=== PATIENT | female | born 1940 | race American Indian/Alaskan Native ===

== ENCOUNTER 2018-01-19 11:39 | Outpatient (CLI) | payer MEDICARE ==
--- NOTE | 2018-01-19 14:12 | XRay Report ---
XRAY RIGHT KNEE 3 THREE VIEWS: 01/19/18 11:39:00 CLINICAL: Right knee pain. FINDINGS: Medial and lateral joint space narrowing with small osteophytes. Slightly greater narrowing of the medial joint space. Mild patellofemoral joint arthritis. Quadriceps tendon insertion and patellar tendon insertion enthesophytes. No fracture or dislocation. No joint effusion.Normal soft tissues. IMPRESSION: Moderate osteoarthritis and quadriceps tendon insertion and patellar tendon insertion enthesophytes.
--- NOTE | 2018-01-19 23:14 | XRay Report ---
FINAL REPORT PROCEDURE: XR SPINE LUMBOSACRAL 4+V TECHNIQUE: Lumbar spine radiographs, including AP, lateral, and oblique views. HISTORY: LUMBAR PAIN WITH RADIATION DOWN RIGHT LEG COMPARISON: No prior studies are available for comparison. FINDINGS: Alignment: Normal. Vertebral body heights/Disk spaces: There is slight loss of disc space height at the L2-3 level. Mild spur formation the vertebral bodies from the L2 through L4 vertebral level is noted. Fracture(s): None. Facets: Normal. Bone mineralization: Normal. IMPRESSION: There is no evidence of an acute fracture or dislocation. Mild lumbar spondylosis as discussed.
== END 2018-01-19 11:40 | disposition home or self-care (01) ==
LOC: SPVIMAG 11:39
PROVIDERS: ATTEND Internal Medicine
DX: M47.896 Other spondylosis, lumbar region (principal); M17.11 Unilateral primary osteoarthritis, right knee
CPT/HCPCS: 72110

== ENCOUNTER 2018-04-01 10:31 | Outpatient (CLI) | payer MEDICARE ==
--- NOTE | 2018-04-01 11:06 | Mammography Report ---
BILATERAL MAMMOGRAM: FINDINGS: The breasts are almost entirely fat (<25% glandular). No mass, distortion, suspicious calcification, or skin change is seen. No significant change when compared to exams dating back to September 2015. CAD was utilized. IMPRESSION: Negative mammogram. There is no mammographic evidence of malignancy. RECOMMENDATION: Follow-up per ACS guidelines. BI-RADS CATEGORY: 1 = Negative ACR BI-RADS MAMMOGRAPHIC CODES: 0 = Needs additional imaging evaluation; 1 = Negative; 2 = Benign; 3 = Probably benign; 4 = Suspicious; 5 = Malignant; 6 = Known biopsy-proven malignancy COMMENT: 1. Dense breast tissue, i.e., adenosis, fibrocystic changes, etc., may obscure an underlying neoplasm. 2. Approximately 10% of cancers are not detected with mammography. 3. A negative mammography report should not delay biopsy if a clinically suspicious mass is present. COMMENT: Patient follow-up letters are generated in [employer].
== END 2018-04-01 10:32 | disposition home or self-care (01) ==
LOC: SPVWC 10:31
PROVIDERS: ATTEND Internal Medicine
DX: Z12.31 Encounter for screening mammogram for malignant neoplasm of breast (principal)
CPT/HCPCS: 77067